=== PATIENT | female | born 1965 | race African-American/Black ===

== ENCOUNTER 2016-11-02 07:31 | Emergency (ER) | payer OTHER ==
[2016-11-02] MEDS ORDERED: Ketorolac INJ* 30 MG/ML 1 ML VIAL IV ONE (07:52)
[2016-11-02] MEDS ORDERED: Dexamethasone IV* 4 MG/ML 1 ML (4 MG) IV SLOW PU ONE (07:53)
[2016-11-02 08:19] LABS: Hematocrit 40 % (35-47); Hemoglobin 12.8 g/dl (12.0-16.0); Mean Corpuscular HGB Conc 32 g/dl (31-36); Mean Corpuscular Hemoglobin 28 pg (27-31); Mean Corpuscular Volume 87 fL (80-97); Mean Platelet Volume 8 um3 (7.4-10.4); Red Blood Count 4.56 10^6/ul (4.0-5.4); Red Cell Distribution Width 14 % (10.5-15)
[2016-11-02 08:28] LABS: Albumin 3.5 g/dL (3.2-5.2); BUN/Creatinine Ratio 15.2 (8-20); C Reactive Protein 36.69 mg/L (< 5.00); Calcium 8.7 mg/dL (8.6-10.3); EGFR African American 121.9 (>60); EGFR Non-African American 94.8 (>60); Globulin 3.6 g/dL (2-4); Potassium 3.8 mmol/L (3.5-5.0); Total Bilirubin 0.5 mg/dL (0.2-1.0); Total Protein 7.1 g/dL (6.4-8.9)
--- NOTE | 2016-11-02 08:54 | RAD ---
HISTORY: Left lower extremity pain COMPARISONS: None relevant TECHNIQUE: Multiple transverse and longitudinal ultrasound images were obtained of the left lower extremity from the level of the common femoral vein inferiorly through to the infrapopliteal veins using grayscale, color Doppler, and spectral Doppler imaging with and without compression and with augmentation. Comparison images were obtained of the contralateral common femoral vein. FINDINGS: VEINS: The venous system of the left lower extremity is compressible throughout its course, with normal flow on color Doppler imaging and normal response to augmentation on spectral Doppler imaging. SOFT TISSUES: Unremarkable. OTHER FINDINGS: None. IMPRESSION: NO LEFT LOWER EXTREMITY DEEP VEIN THROMBOSIS
--- NOTE | 2016-11-02 09:47 | RAD ---
HISTORY: Hip pain COMPARISONS: None VIEWS: 4, Frontal, lateral, and oblique views of the left hip FINDINGS: BONE DENSITY: Normal. BONES: There is no displaced fracture. JOINTS: There is moderate osteoarthritis of the left hip most pronounced along the superior acetabulum, with calcification along the acetabular margin. ALIGNMENT: There is no dislocation. SOFT TISSUES: Unremarkable. OTHER FINDINGS: None. IMPRESSION: OSTEOARTHRITIS. NO ACUTE OSSEOUS INJURY. IF SYMPTOMS PERSIST, RECOMMEND REPEAT IMAGING.
[2016-11-02 10:53] VITALS: BP 127/70
--- NOTE | 2016-11-02 12:13 | ED ---
Javier Mcmullen Auryana, scribed for Oscar Somers MD on 11/02/16 at 0806 . Lower Extremity - HPI Summary HPI Summary: 51 year old female presents with left hip pain that started 1 week ago worse since yesterday at 03:00 PM. She reports that the pain started after a hike and the following day flew to [place] - reports manageable pain then. She states that the pain is a constant dull aching and radiates down the left leg. Currently the pain is an 9/10. The pain is worse with standing and ambulation - becomes a stabbing pain. No relief with 800mg Advil. She has had no prior episodes. 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 FHx is significant for DM with father. SHx is significant for alcohol use (1 glass wine/week). No tobacco and recreational drug use. - History of Current Complaint Chief Complaint: EDExtremityLower Stated Complaint: LT LEG PAIN Time Seen by Provider: 11/02/16 07:51 Hx Obtained From: Patient Hx Last Menstrual Period: N/A Mechanism Of Injury: Unknown Onset of Pain: Immediate Onset/Duration: Weeks - started 1 week ago worse since yesterday at 03:00PM Severity Initially: Moderate Severity Currently: Severe Pain Intensity: 9 Pain Scale Used: 0-10 Numeric Timing: Constant - dull ache, Intermittent - stabbing with ambulation Location: Is Discrete @ - left hip and radiates down the left leg Character Of Pain: Sharp - stabbing, Dull, Aching Associated Signs And Symptoms: Positive: Negative Aggravating Factor(s): Standing, Ambulation Alleviating Factor(s): Nothing Able to Bear Weight: Yes - Allergies/Home Medications Allergies/Adverse Reactions: Allergies Allergy/AdvReac Type Severity Reaction Status Date / Time No Known Allergies Allergy Verified 11/02/16 07:51 Home Medications: Home Medications Hydroxychloroquine TAB* [Plaquenil TAB*] 1 tab PO DAILY 11/02/16 [History Confirmed 11/02/16] PMH/Surg Hx/FS Hx/Imm Hx Endocrine/Hematology History: Reports: Hx Systemic Lupus Erythematosus Infectious Disease History: Reports: Traveled Outside the [place] in Last 30 Days - Family History Known Family History: Positive: Diabetes - Social History Occupation: Employed Full-time - [employer] Lives: With Family - Alcohol Use: None Hx Substance Use: No Substance Use Type: Reports: None Hx Tobacco Use: No Smoking Status (MU): Never Smoked Tobacco Review of Systems Constitutional: Negative Negative: Fever Eyes: Negative ENT: Negative Cardiovascular: Negative Respiratory: Negative Gastrointestinal: Negative Genitourinary: Negative Positive: Arthralgia - left hip and radiates down the leg Skin: Negative Neurological: Negative Psychological: Normal All Other Systems Reviewed And Are Negative: Yes Physical Exam - Summary Physical Exam Summary: VITAL SIGNS: Reviewed. GENERAL: Patient is a well-developed and nourished female who is lying comfortable in the stretcher. Patient is not in any acute respiratory distress. HEAD AND FACE: No signs of trauma. No ecchymosis, hematomas or skull depressions. No sinus tenderness. EYES: PERRLA, EOMI x 2, No injected conjunctiva, no nystagmus. EARS: Hearing grossly intact. Ear canals and tympanic membranes are within normal limits. MOUTH: Oropharynx within normal limits. NECK: Supple, trachea is midline, no adenopathy, no JVD, no carotid bruit, no c- spine tenderness, neck with full ROM. CHEST: Symmetric, no tenderness at palpation LUNGS: Clear to auscultation bilaterally. No wheezing or crackles. CVS: Regular rate and rhythm, S1 and S2 present, no murmurs or gallops appreciated. ABDOMEN: Soft, non-tender. No signs of distention. No rebound no guarding, and no masses palpated. Bowel sounds are normal. EXTREMITIES: Decreased ROM in the Left hip. No edema, no cyanosis or clubbing. No deformity. Good pulses and good capillary refill in the left foot. NEURO: Alert and oriented x 3. No acute neurological deficits. Speech is normal and follows commands. SKIN: Dry and warm Triage Information Reviewed: Yes Vital Signs On Initial Exam: Initial Vitals Temp Pulse Resp BP Pulse Ox 98.3 F 88 18 121/75 100 11/02/16 07:34 11/02/16 07:34 11/02/16 07:34 11/02/16 07:34 11/02/16 07:34 Vital Signs Reviewed: Yes Diagnostics - Vital Signs Vital Signs Temp Pulse Resp BP Pulse Ox 11/02/16 07:37 98.3 F 88 20 121/75 100 11/02/16 07:34 98.3 F 88 18 121/75 100 - Laboratory Lab Results: Lab Results 11/02/16 11/02/16 Range/Units 08:00 08:00 WBC 14.0 H (3.5-10.8) 10^3/ul RBC 4.56 (4.0-5.4) 10^6/ul Hgb 12.8 (12.0-16.0) g/dl Hct 40 (35-47) % MCV 87 (80-97) fL MCH 28 (27-31) pg MCHC 32 (31-36) g/dl RDW 14 (10.5-15) % Plt Count 256 (150-450) 10^3/ul MPV 8 (7.4-10.4) um3 Neut % (Auto) 81.1 (38-83) % Lymph % (Auto) 10.1 L (25-47) % [place] % (Auto) 7.8 (1-9) % Eos % (Auto) 0.6 (0-6) % Baso % (Auto) 0.4 (0-2) % Absolute Neuts (auto) 11.4 H (1.5-7.7) 10^3/ul Absolute Lymphs (auto) 1.4 (1.0-4.8) 10^3/ul Absolute Monos (auto) 1.1 H (0-0.8) 10^3/ul Absolute Eos (auto) 0.1 (0-0.6) 10^3/ul Absolute Basos (auto) 0.1 (0-0.2) 10^3/ul Absolute Nucleated RBC 0 10^3/ul Nucleated RBC % 0 Sodium 132 L (133-145) mmol/L Potassium 3.8 (3.5-5.0) mmol/L Chloride 104 (101-111) mmol/L Carbon Dioxide 21 L (22-32) mmol/L Anion Gap 7 (2-11) mmol/L BUN 10 (6-24) mg/dL Creatinine 0.66 (0.51-0.95) mg/dL Est GFR ( Amer) 121.9 (>60) Est GFR (Non-Af Amer) 94.8 (>60) BUN/Creatinine Ratio 15.2 (8-20) Glucose 158 H (70-100) mg/dL Calcium 8.7 (8.6-10.3) mg/dL Total Bilirubin 0.50 (0.2-1.0) mg/dL AST 19 (13-39) U/L ALT 14 (7-52) U/L Alkaline Phosphatase 52 (34-104) U/L C-Reactive Protein 36.69 H (< 5.00) mg/L Total Protein 7.1 (6.4-8.9) g/dL Albumin 3.5 (3.2-5.2) g/dL Globulin 3.6 (2-4) g/dL Albumin/Globulin Ratio 1.0 (1-3) Result Diagrams: 11/02/16 08:00 11/02/16 08:00 Lab Statement: Any lab studies that have been ordered have been reviewed, and results considered in the medical decision making process. - Radiology LEFT HIP/PELVIS Xray Interpretation: No Acute Changes - IMPRESSION: OSTEOARTHRITIS. NO ACUTE OSSEOUS INJURY. IF SYMPTOMS PERSIST, RECOMMEND REPEAT IMAGING. Radiology Interpretation Completed By: Radiologist - Additional Comments Diagnostic Additional Comments: VL LOWER EXT VEINS LEFT IMPRESSION: NO LEFT LOWER EXTREMITY DEEP VEIN THROMBOSIS Re-Evaluation - Re-Evaluation First Eval Re-Evaluation Time: 10:41 - discussed results with patient Change: Improved Comment: patient is feeling much better and is able to ambulate Lower Extremity Course/Dx - Course Course Of Treatment: 51 year old female presents with left hip pain that started 1 week ago worse since yesterday at 03:00 PM. She reports that the pain started after a hike and the following day flew to [place] - reports manageable pain then. She states that the pain is a constant dull aching and radiates down the left leg. Currently the pain is an 9/10. The pain is worse with standing and ambulation - becomes a stabbing pain. No relief with 800mg Advil. She has had no prior episodes. 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 FHx is significant for DM with father. SHx is significant for alcohol use (1 glass wine/week). No tobacco and recreational drug use. Assessment/Plan: Test results WNL except WBC 14, Sodium 132, glucose 158, CRP 36.6. VL LOWER EXT VEINS LEFT- IMPRESSION: NO LEFT LOWER EXTREMITY DEEP VEIN THROMBOSIS. LEFT HIP/PELVIS XR - IMPRESSION: OSTEOARTHRITIS. NO ACUTE OSSEOUS INJURY. IF SYMPTOMS PERSIST, RECOMMEND REPEAT IMAGING. In ED course, that pat given Torradol, Decadron, and symptoms improved. At this time, the patient was about to ambulate to the bathroom, and symptoms did not increase. I believe symptoms are secondary to bursitis of the L hip and overuse. Patient with be discharge with PCP follow up. Patient is A&O x3 and is hemodynamically stable. I discussed all the findings and test results with the patient. Patient was instructed to return to the emergency room immediately if any of the symptoms return or worsens. Plan of care was discussed with the patient and understands and agrees. All questions were answered at patient satisfaction. There were no further complaints or concerns. Lung exam before discharge: CTA B/L. Good air exchange. No wheezing or crackles heard. CVS: S1 and S2 present. No murmurs appreciated. Patient is alert and oriented x 3. Patient is hemodynamically stable. Patient will be discharged home with follow up PCP in the next 2-3 days - Diagnoses Differential Diagnosis/HQI/PQRI: Positive: Bursitis, Contusion, Fracture (Closed ), Sprain, Strain Provider Diagnoses: Left hip pain Discharge - Discharge Plan Condition: Stable Disposition: HOME Prescriptions: HYDROcodone/ACETAMIN 5-325 MG* [[place] 5-325 TAB*] 1 tab PO Q6H PRN #10 tab MDD 4 tabs / day PRN Reason: Pain Ibuprofen TAB* [Motrin TAB* 600 MG] 600 mg PO Q8H PRN #20 tab PRN Reason: Pain Methocarbamol [Robaxin-750 MG TAB] 750 mg PO TID #12 tab Methylprednisolone [Medrol Dosepak 4 MG*] 4 mg PO .SEE MARY ANN INSTRUCTION #1 mary ann Patient Education Materials: Methocarbamol (By mouth), Methylprednisolone (By mouth), Narcotic Pain Management (ED), Hip Pain (ED) Referrals: Angeline Dowling MD [Primary Care Provider] - 2 Days The documentation as recorded by the Javier stephens Auryana accurately reflects the service I personally performed and the decisions made by me, Oscar Somers MD.
== END 2016-11-02 10:52 | disposition home or self-care (01) ==
LOC: ED 07:31
DX: M25.552 Pain in left hip (principal)
CPT/HCPCS: 36415; 80053; 85025; 86140; 96374; 96375; 99283; J1100; J1885